=== PATIENT | female | born 1945 | race Caucasian/White ===

== ENCOUNTER 2022-01-06 13:10 | Emergency (ER) | payer MEDICARE, SELFPAY ==
--- NOTE | ~2022-01-06 | XR_ITS ---
EXAMINATION: XR facial bones min 3V DATE: 01/06/2022 14:00 INDICATION: Left facial pain. Fall. TECHNIQUE: 5 views of the facial bones were obtained. COMPARISON: None. FINDINGS: Bone alignment is normal. No fracture. There is partial opacification of right maxillary si nus. IMPRESSION: 1. No fracture. Reviewed, dictated and finalized at location B. IMPRESSION: 1. No fracture.
[2022-01-06 13:26] VITALS: BP 137/57; PULSE 89; RESP 16; TEMP 35.8; O2SAT 98
--- NOTE | 2022-01-06 13:35 | ED.FALL ---
HPI - Fall General Chief Complaint: Fall Stated Complaint: fall Time Seen by Provider: 01/06/22 13:40 Source: patient, RN notes reviewed and old records reviewed Mode of arrival: ambulatory Limitations: no limitations History of Present Illness HPI Narrative: 76 [facility] complaints of swelling around left eye and bruising with hematoma to left forehead region from a fall which occurred on Thursday when she was on Vacation in [place] on Bus Tour. Patient states that they were visiting this beautiful home and she was not paying attention and fell down 2 steps hitting the left side of her face on piano bench. Patient states that left eye was swollen shut but is open today with purplish bruising around left eye with hematoma with bruising on left forehead. Patient also has some bruising to the inner cantus of her right eye also. Patient denies any acute pain, headache, dizziness or nausea or vomiting and denies any vision changes. Has applied ice and taken Tylenol for her discomfort MD complaint: fall Onset (ago): day(s) (2) Fall from: standing Fall witnessed: yes, by bystander Place fall occurred: other (on bus trip in [place]) Loss of consciousness: none Prolonged down time: no Symptoms prior to fall: none Context: other (missed 2 wooden step and hit left side of face and forehead on piano bench) Location of injury: face and other (forhead) Severity scale (1-10): 4 Quality: aching Associated symptoms (after fall): other (swelling and bruising of face) Related Data Home Medications Medication Instructions Recorded Confirmed fluoxetine 20 mg DIRECTED 01/06/22 01/06/22 lisinopril 40 mg DIRECTED 01/06/22 01/06/22 simvastatin 40 mg DIRECTED 01/06/22 01/06/22 Allergies Allergy/AdvReac Type Severity Reaction Status Date / Time adhesive tape Allergy Unknown Verified 01/09/16 08:11 Review of Systems Review of Systems: CONSTITUTIONAL: Denies fever, chills, or sweats. EYES: Denies visual changes, redness, or discharge.has acute bruising and swelling around her left eye with raised hematoma to right forehead which occurred on Thursday during fall, denies ENT: Denies rhinorrhea, congestion, sore throat, or otalgia. CARDIOVASCULAR: Denies chest pain, palpitations, or edema. RESPIRATORY: Denies cough or dyspnea. GASTROINTESTINAL: Denies abdominal pain, nausea, vomiting, or diarrhea. GENITOURINARY: Denies dysuria or hematuria. SKIN: Denies rash or itching. MUSCULOSKELETAL: Denies back pain, joint pain, or myalgia. NEUROLOGIC: Denies headache, numbness, or weakness. PSYCHIATRIC: POSITIVE FOR HISTORY OF anxiety or depression. All systems reviewed & are unremarkable except as noted in HPI and below PMFSH Past Medical History Medical History (Updated 01/06/22 @ 19:51 by Mariluz Dasilva NP) Anxiety and depression Arthritis Breast cancer, left breast MASTECTOMY CHEM AND RADIATION Hyperlipidemia Hypertension Surgical History Surgical History (Updated 01/06/22 @ 19:55 by Mariluz Dasilva NP) H/O section History of cataract surgery BILATERAL WITH IOL History of dilatation and curettage History of excision of lesion BCC Hx of total mastectomy of left breast Social History Social History (Updated 01/06/22 @ 19:55 by Mariluz Dasilva NP) Smoking status: Never smoker Alcohol intake: current Alcohol use details: rare social Substance use: never Living arrangements: with family Gender identity (if verbalized by the patient): Female Comments At time of signature, agree with nursing past medical, surgical, social and family history. There is no relevant family history pertinent to the presenting complaint Exam Narrative: GENERAL: Well-appearing, well-nourished, and in no acute distress. HEAD: Normocephalic, traumatic.left orbit and forehead from fall EYES: PERRLA and EOMI. swelling and large amount of purplish bruising noted around left eye with he
== END 2022-01-06 14:34 | disposition home or self-care (01) ==
PROVIDERS: Emergency Provider Registered Nurse
DX: H05.222 Edema of left orbit (principal); S00.83XA Contusion of other part of head, initial encounter; W10.9XXA Fall (on) (from) unspecified stairs and steps, initial encounter; M19.90 Unspecified osteoarthritis, unspecified site; E78.5 Hyperlipidemia, unspecified; I10 Essential (primary) hypertension; Z85.3 Personal history of malignant neoplasm of breast; Z90.12 Acquired absence of left breast and nipple; Z92.21 Personal history of antineoplastic chemotherapy; Z92.3 Personal history of irradiation; Z98.42 Cataract extraction status, left eye; Z98.41 Cataract extraction status, right eye; Z96.1 Presence of intraocular lens
CPT/HCPCS: 70150; 99203; G0463

== ENCOUNTER 2022-08-24 09:25 | Emergency (ER) | payer MEDICARE, SELFPAY ==
--- NOTE | ~2022-08-24 | XR_ITS ---
EXAMINATION: XR shoulder RT min 2V DATE: 08/24/2022 10:11 INDICATION: Right shoulder pain. TECHNIQUE: 4 views of right shoulder were obtained. COMPARISON: None. FINDINGS: Bone alignment is normal. There is an expansile aggressive lytic lesion of proximal humeral diaphysis with nondisplaced oblique pathologic fracture. There is mild osteoarthritis of glenohumera l joint and severe osteoarthritis of acromioclavicular joint. IMPRESSION: 1. Expansile aggressive lytic lesion of proximal humeral diaphysis with nondisplaced oblique patholog ic fracture. The differential diagnosis includes metastatic disease and multiple myeloma. 2. Polyarticular osteoarthritis. Reviewed, dictated and finalized at location A. 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 Expansile aggressive lytic lesion of proximal humeral diaphysis with nondisp laced oblique pathologic fracture. The differential diagnosis includes metastat ic disease and multiple myeloma. 2. Polyarticular osteoarthritis.
[2022-08-24 09:33] VITALS: BP 158/85; PULSE 96; RESP 16; TEMP 36.6; O2SAT 98
--- NOTE | 2022-08-24 10:48 | ED.EXTPRO ---
HPI - Extremity Problem General Chief complaint: Extremity Problem,Nontraumatic Stated complaint: R SHOULDER PAIN Time Seen by Provider: 08/24/22 10:32 History of Present Illness HPI Narrative: 77-year-old female history of breast cancer, hypertension, hyperlipidemia presented to the emergency room for complaints of atraumatic right shoulder pain. Patient states that the shoulder has been bothering her for several months, has progressively gotten worse. States last night she was labeling some soup when she felt a sharp pain in her shoulder area. Patient states that she is unable to move her shoulder since. Taking Tylenol with no relief of symptoms. Related Data Home Medications Medication Instructions Recorded Confirmed fluoxetine 20 mg capsule 20 mg DIRECTED 01/06/22 01/06/22 lisinopril 40 mg tablet 40 mg DIRECTED 01/06/22 01/06/22 simvastatin 40 mg tablet 40 mg DIRECTED 01/06/22 01/06/22 Allergies Allergy/AdvReac Type Severity Reaction Status Date / Time adhesive tape Allergy Unknown Blister Verified 08/24/22 10:38 Review of Systems Review of Systems: CONSTITUTIONAL: Denies fever, chills, or sweats. EYES: Denies visual changes, redness, or discharge. ENT: Denies rhinorrhea, congestion, sore throat, or otalgia. CARDIOVASCULAR: Denies chest pain, palpitations, or edema. RESPIRATORY: Denies cough or dyspnea. GASTROINTESTINAL: Denies abdominal pain, nausea, vomiting, or diarrhea. GENITOURINARY: Denies dysuria or hematuria. SKIN: Denies rash or itching. MUSCULOSKELETAL: Denies back pain, joint pain, or myalgia. NEUROLOGIC: Denies headache, numbness, dizziness, or weakness. PSYCHIATRIC: Denies anxiety or depression. [facility] Past Medical History Medical History Anxiety and depression Arthritis Breast cancer, left breast MASTECTOMY CHEM AND RADIATION Hyperlipidemia Hypertension Surgical History Surgical History H/O section History of cataract surgery BILATERAL WITH IOL History of dilatation and curettage History of excision of lesion BCC Hx of total mastectomy of left breast Social History Social History Smoking status: Never smoker Alcohol intake: current Alcohol use details: rare social Substance use: never Gender identity (if verbalized by the patient): Female Exam Narrative: GENERAL: Well-appearing, well-nourished, no physical limitations, and in no acute distress. HEAD: Normocephalic, atraumatic. EYES: Conjunctivae normal, PERRLA and EOMI.VD CHEST: Clear to auscultation. No respiratory distress. No wheezes rales or rhonchi. HEART: Regular rate and rhythm. No murmur heard. Normal peripheral pulses. EXTREMITIES: RUE: +TTP to proximal humerus, no obvious bony abnormality or ecchymosis. Limited range of motion due to pain. Neurovascular is intact distally SKIN: Warm, dry, no rash. No noted wounds NEURO: No focal deficits. Alert and oriented x3. MAEW. CN's II-XI intact bilaterally, normal gait PSYCH: Cooperative. Normal mood and affect. Course Vital Signs Vital signs: Vital Signs Temperature 36.6 C 08/24/22 09:33 Pulse Rate 96 08/24/22 09:33 Respiratory Rate 16 08/24/22 09:33 Blood Pressure 158/85 H 08/24/22 09:33 Pulse Oximetry 98 08/24/22 09:33 Temperature 36.6 C 08/24/22 09:33 Pulse Rate 96 08/24/22 09:33 Respiratory Rate 16 08/24/22 09:33 Blood Pressure 158/85 H 08/24/22 09:33 Pulse Oximetry 98 08/24/22 09:33 MDM - Extremity (Nontraumatic) Imaging Data Radiologist's impression: Impressions Shoulder X-Ray 08/24/22 10:18 IMPRESSION: 1. Expansile aggressive lytic lesion of proximal humeral diaphysis with nondisplaced oblique pathologic fracture. The differential diagnosis includes metastatic disease and multiple myeloma. 2. Polyarticular osteoarthritis.
== END 2022-08-24 11:10 | disposition home or self-care (01) ==
PROVIDERS: Emergency Provider Nurse Practitioner Family
DX: M84.421A Pathological fracture, right humerus, initial encounter for fracture (principal); I10 Essential (primary) hypertension; E78.5 Hyperlipidemia, unspecified; Z85.3 Personal history of malignant neoplasm of breast; F41.8 Other specified anxiety disorders; Z90.12 Acquired absence of left breast and nipple; Z92.21 Personal history of antineoplastic chemotherapy; Z92.3 Personal history of irradiation
CPT/HCPCS: 73030; 99284; A4565